=== PATIENT | female | born 1960 | race Two or more races ===

== ENCOUNTER 2023-04-09 13:57 | Emergency (ER) | payer BC, OTHER ==
[~2023-04-09] VITALS: Ht 162.6 cm; Wt 82.0 kg
[2023-04-09] MEDS ORDERED: methylPREDNISolone SOD SUCC 125 MG/2 ML VL IV ONE (14:45)
[2023-04-09 14:52] LABS: Basophils # (auto) 0.1 10 ^3/uL (0-0.2); Basophils % (auto) 1.1 % (0.0-2.0); Eosinophils # (auto) 0.5 10 ^3/uL (0-0.8); Eosinophils % (auto) 4.1 % (0.0-7.0); Hematocrit 49.8 % (36.0-46.0); Hemoglobin 16.9 g/dL (12.2-16.2); Lymphocytes # (auto) 1.5 10 ^3/uL (0.4-5.4); Mean Corpuscular Hemoglobin 33.2 pg (28.0-32.0); Mean Corpuscular Hgb Conc. 33.9 g/dL (32.0-36.0); Mean Corpuscular Volume 97.8 fL (80.0-100.0); Monocytes # (auto) 0.8 10 ^3/uL (0-1.3); Monocytes % (auto) 7.5 % (0.0-12.0); Neutrophils # (auto) 8.3 10 ^3/uL (1.6-8.6); Neutrophils % (auto) 74.3 % (37.0-80.0); Nucleated Red Blood Cells % 1.7 %; Red Blood Cells 5.09 10^6/uL (4.0-5.20); Red Cell Distribution Width 13.7 % (11.8-14.3); White Blood Cell 11.2 10^3/uL (4.4-10.8)
[2023-04-09 15:16] LABS: Albumin 4.1 g/dL (3.4-5.0); Calcium 8.8 mg/dL (8.5-10.1); Magnesium 2.4 mg/dL (1.6-2.6); Potassium 4.1 mmol/L (3.5-5.1)
[2023-04-09 15:20] LABS: BUN/Creatinine Ratio 18.5 (10.0-20.0); Bilirubin, Total 0.3 mg/dL (0.2-1.0); Total Protein 7.3 g/dL (6.4-8.2)
[2023-04-09] MEDS ORDERED: METH4PAK PO (15:32)
[2023-04-09 17:15] VITALS: BP 162/92
== END 2023-04-09 17:17 | disposition home or self-care (01) ==
LOC: ER 13:57 → EDBD 13:57 → ER 17:17
DX: J44.1 Chronic obstructive pulmonary disease with (acute) exacerbation (principal); F17.210 Nicotine dependence, cigarettes, uncomplicated; Z98.890 Other specified postprocedural states
CPT/HCPCS: 36415; 71045; 80053; 83735; 83880; 84484; 85025; 93005

== ENCOUNTER 2023-12-08 05:18 | Emergency (ER) | payer BC ==
[~2023-12-08] VITALS: Ht 165.1 cm; Wt 105.0 kg
[~2023-12-08 05:18] MED LIST: METH4PAK PO
[2023-12-08 05:40] VITALS: PULSE 83; RESP 24; O2SAT 94
[2023-12-08 06:47] LABS: Base Excess 4.6 mmol/L (-2.0-2.0)
[2023-12-08 06:49] LABS: Basophils # (auto) 0.1 10 ^3/uL (0-0.2); Basophils % (auto) 0.4 % (0.0-2.0); Eosinophils # (auto) 0.2 10 ^3/uL (0-0.8); Eosinophils % (auto) 1.2 % (0.0-7.0); Hematocrit 46.6 % (36.0-46.0); Hemoglobin 15.2 g/dL (12.2-16.2); Mean Corpuscular Hemoglobin 31.5 pg (28.0-32.0); Mean Corpuscular Hgb Conc. 32.7 g/dL (32.0-36.0); Mean Corpuscular Volume 96.4 fL (80.0-100.0); Monocytes # (auto) 0.6 10 ^3/uL (0-1.3); Monocytes % (auto) 4.3 % (0.0-12.0); Neutrophils # (auto) 12.8 10 ^3/uL (1.6-8.6); Neutrophils % (auto) 87.1 % (37.0-80.0); Nucleated Red Blood Cells % 0.1 %; Red Blood Cells 4.84 10^6/uL (4.0-5.20); Red Cell Distribution Width 13.6 % (11.8-14.3); White Blood Cell 14.7 10^3/uL (4.4-10.8)
[2023-12-08 06:59] LABS: Alanine Aminotransferase 25 U/L (7-40); Alkaline Phosphatase 81 U/L (46-116); Anion Gap 2 (5-15); Calcium 9.2 mg/dL (8.7-10.4); Carbon Dioxide 32 mmol/L (20-30); Chloride 104 mmol/L (98-107); Glucose 155 mg/dL (74-106); Lipase 28 U/L (12-53); Potassium 3.8 mmol/L (3.5-5.1); Sodium 138 mmol/L (136-145)
[2023-12-08 07:00] LABS: Albumin 4.1 g/dL (3.2-4.8); Aspartate Aminotransferase 28 U/L (13-40); BUN/Creatinine Ratio 10.9 (10.0-20.0); Bilirubin, Total 0.5 mg/dL (0.2-1.0); Blood Urea Nitrogen 7 mg/dL (9-23); Total Protein 6.8 g/dL (5.7-8.2)
[2023-12-08 07:01] LABS: INR 1.02 (0.9-1.15); Prothrombin Time 10.7 sec (9.3-11.8)
[2023-12-08] MEDS ORDERED: ASPirin-EC 325mg tab PO ONE (07:30)
[2023-12-08] MEDS ORDERED: IOHEXOL 350 MG/ML 100ML IJ ONE (07:31)
[2023-12-08] MEDS ORDERED: methylPREDNISolone SOD SUCC 125 MG/2 ML VL IV ONE (07:45)
[2023-12-08] MEDS ORDERED: IPRATROPIUM BROM 0.5 MG/2.5ML INH SOL NEB ONE (07:45)
[2023-12-08] MEDS ORDERED: ALBUTEROL SULF 2.5 MG/0.5ML(0.5%) NEB SOLN NEB ONE ×3 (07:45→10:45)
[2023-12-08] MEDS ORDERED: AZITHROMYCIN 500MG/ 250ML 250 ML IV ONE (07:45)
[2023-12-08 07:55] VITALS: PULSE 77; RESP 22; O2SAT 94
[2023-12-08] MEDS ORDERED: ALBUTEROL SULF 2.5 MG/0.5ML(0.5%) NEB SOLN ONE (09:08)
[2023-12-08 09:10] LABS: COVID19 ANTIGEN SOFIA FIA NEGATIVE (NEGATIVE); Rapid Influenza A Negative (Negative); Rapid Influenza B Negative (Negative)
[2023-12-08 10:23] LABS: Urine Bacteria FEW /hpf (None Seen); Urine Blood Negative /uL (Negative); Urine Clarity Clear (Clear); Urine Color Yellow (Yellow); Urine Protein, UAD 1+ (Negative); Urine Urobilinogen Normal (Negative); Urine WBC 1 /hpf (0 - 5)
[2023-12-08] MEDS ORDERED: ENOXAPARIN SOD 100 MG/1 ML SYRINGE SC ONE (10:30)
[2023-12-08 10:31] LABS: Urine Specific Gravity > 1.050 (1.001-1.035)
[2023-12-08] MEDS ORDERED: LEVO500T91 PO (10:36)
[2023-12-08] MEDS ORDERED: METH4PAK PO (10:36)
[2023-12-08] MEDS ORDERED: ALBU0.084 NEB (10:36)
[2023-12-08] MEDS ORDERED: ALBUAER3 IN (10:36)
[2023-12-08 17:42] VITALS: BP 156/69; PULSE 91; RESP 22; TEMP 98.2; O2SAT 91
== END 2023-12-08 18:03 | disposition home or self-care (01) ==
LOC: EDBD 05:18 → ER 05:18
DX: J44.1 Chronic obstructive pulmonary disease with (acute) exacerbation (principal); J18.9 Pneumonia, unspecified organism; I21.4 Non-ST elevation (NSTEMI) myocardial infarction; R09.02 Hypoxemia; R06.89 Other abnormalities of breathing; R79.89 Other specified abnormal findings of blood chemistry; D72.829 Elevated white blood cell count, unspecified; F17.210 Nicotine dependence, cigarettes, uncomplicated; Z98.51 Tubal ligation status; Z20.822 Contact with and (suspected) exposure to COVID-19
CPT/HCPCS: 36415; 36600; 71045; 71275; 80053; 81001; 82805; 83690; 83880; 84484; 85025; 85379; 85610; 87040; 87426; 87804; 93005; 94640; 96365; 96366; 96372; 96375; 99291; J0456; J1650; J2930; J7644; Q9967

== ENCOUNTER 2024-03-06 03:14 | Emergency (ER) | payer BC ==
[~2024-03-06] VITALS: Ht 167.6 cm; Wt 79.0 kg
[~2024-03-06 03:14] MED LIST changes: +ALBU0.084 NEB; +ALBUAER3 IN; +LEVO500T91 PO
[2024-03-06] MEDS: BUDESONIDE (INHALATION) 0.5 MG/2 ML NEB NEB ONE (03:45)
[2024-03-06 03:54] LABS: Base Excess 1.6 mmol/L (-2.0-2.0)
[2024-03-06 04:04] LABS: Basophils # (auto) 0.1 10 ^3/uL (0-0.2); Basophils % (auto) 1.1 % (0.0-2.0); Eosinophils # (auto) 0.4 10 ^3/uL (0-0.8); Eosinophils % (auto) 3.4 % (0.0-7.0); Hematocrit 46.2 % (36.0-46.0); Hemoglobin 15.2 g/dL (12.2-16.2); Lymphocytes % (auto) 33.2 % (10.0-50.0); Mean Corpuscular Hemoglobin 31.2 pg (28.0-32.0); Mean Corpuscular Hgb Conc. 32.9 g/dL (32.0-36.0); Mean Corpuscular Volume 94.8 fL (80.0-100.0); Monocytes # (auto) 0.9 10 ^3/uL (0-1.3); Monocytes % (auto) 7.7 % (0.0-12.0); Neutrophils # (auto) 6.6 10 ^3/uL (1.6-8.6); Neutrophils % (auto) 54.6 % (37.0-80.0); Nucleated Red Blood Cells % 0.2 %; Red Blood Cells 4.87 10^6/uL (4.0-5.20); White Blood Cell 12.1 10^3/uL (4.4-10.8)
[2024-03-06 04:21] LABS: Alanine Aminotransferase 17 U/L (7-40); Albumin 4.5 g/dL (3.2-4.8); Alkaline Phosphatase 82 U/L (46-116); Anion Gap 5 (5-15); Aspartate Aminotransferase 13 U/L (13-40); BUN/Creatinine Ratio 15.6 (10.0-20.0); Blood Urea Nitrogen 10 mg/dL (9-23); Calcium 9.8 mg/dL (8.7-10.4); Carbon Dioxide 28 mmol/L (20-30); Chloride 106 mmol/L (98-107); Glucose 121 mg/dL (74-106); Potassium 3.5 mmol/L (3.5-5.1); Sodium 139 mmol/L (136-145)
[2024-03-06 04:22] LABS: Bilirubin, Total 0.7 mg/dL (0.2-1.0); Total Protein 7.1 g/dL (5.7-8.2)
[2024-03-06] MEDS: DexAMETHasone SOD PHOS 10MG/1ML VIAL INJ IV ONE (04:24)
[2024-03-06 04:30] VITALS: PULSE 88; RESP 21; TEMP 99.4; O2SAT 93
[2024-03-06] MEDS: ALBUTEROL SULF 2.5 MG/0.5ML(0.5%) NEB SOLN NEB ONE ×2 (07:20→12:36)
[2024-03-06] MEDS ORDERED: ENOXAPARIN SOD 80 MG/0.8ML SYRINGE SC ONE (07:30)
[2024-03-06] MEDS: MAGNESIUM SULFATE 1GM/100ML 100 ML IV ONE (07:32)
[2024-03-06] MEDS: ALPRAZolam 0.5 MG TAB PO ONE (09:40)
[2024-03-06 10:00] VITALS: PULSE 97; RESP 14; O2SAT 95
[2024-03-06] MEDS: IPRATROPIUM BROM 0.5 MG/2.5ML INH SOL NEB ONE (12:35)
[2024-03-06] MEDS ORDERED: IPRA0.00 IN (12:57)
[2024-03-06] MEDS ORDERED: PRED20TA2 PO (13:00)
[2024-03-06] MEDS ORDERED: LEVO750T40 PO (13:01)
[2024-03-06] MEDS ORDERED: NICO1DIS32 TD (13:05)
[2024-03-06 16:00] VITALS: BP 157/88; PULSE 101; RESP 17; O2SAT 94
== END 2024-03-06 16:15 | disposition home or self-care (01) ==
LOC: ER 03:14 → EDBD 03:14 → ER 16:15
DX: J44.1 Chronic obstructive pulmonary disease with (acute) exacerbation (principal); F17.210 Nicotine dependence, cigarettes, uncomplicated; Z98.51 Tubal ligation status
CPT/HCPCS: 36415; 36600; 71045; 80053; 82805; 83605; 83880; 84484; 85025; 85379; 87040; 93005; 94640; 96365; 96375; 99285; J1100; J3475; J7644